=== PATIENT | male | born 1980 | race Caucasian/White ===

== ENCOUNTER 2017-11-06 12:08 | Emergency (ER) | END 2017-11-06 13:06 | disposition home or self-care (01) ==

== ENCOUNTER 2018-06-28 10:41 | Emergency (ER) | payer MEDICARE, OTHER ==
[~2018-06-28] VITALS: Wt 80.8 kg
[~2018-06-28 10:41] MED LIST: MUPI22OI2 TOP
[2018-06-28 10:43] VITALS: BP 116/71; PULSE 77; RESP 17
[2018-06-28] MEDS ORDERED: SULF1TAB31 PO (11:25)
--- NOTE | 2018-06-28 11:27 | ERD ---
ER Documentation Chief Complaint Chief Complaint REDNESS/SWELLING ON NOSE X2 WEEKS HPI 38-year-old male presents with intermittent redness and discharge from his nostril and outer aspect of his nose on the left side for last 2 weeks. No fevers, vomiting, shortness with chest pain. He did started with a lesion on t he inner nostril now has spread to the outer aspect of his nose. ROS All systems reviewed and are negative except as per history of present illness. Medications Home Meds Active Scripts Sulfamethoxazole/Trimethoprim* (Bactrim Ds* Tablet) 1 Each Tablet, 1 TAB PO BID for 7 Days, #14 TAB Prov:KIMBER WATSON MD 06/28/18 Mupirocin* (Bactroban*) 2% -22 Gram Oint...g., 1 APPLIC TOP BID for 7 Days, EA Prov:YUNG BELL PA-C 11/06/17 Allergies Allergies: Coded Allergies: No Known Allergy (Unverified , 06/28/18) PMhx/Soc Medical and Surgical Hx: pt denies Medical Hx, pt denies Surgical Hx Hx Alcohol Use: Yes (SOCIAL) Hx Substance Use: No Hx Tobacco Use: Yes (1 PACK A DAY) Smoking Status: Current some day smoker FmHx Family History: No diabetes, No coronary disease, No other Physical Exam Vitals Vital Signs Date Temp Pulse Resp B/P (MAP) Pulse Ox O2 O2 Flow FiO2 Time Delivery Rate 06/28/18 98.0 77 17 116/71 98 10:43 (86) Physical Exam Const: No acute distress Head: Atraumatic Eyes: Normal Conjunctiva ENT: Normal External Ears, Nose and Mouth. Small pustule on the inner aspect of the left nostril. Small dried pustule on the outer aspect of the left nostril slight surrounding redness without induration, streaking, fluctuance, active discharge. Neck: Full range of motion. No meningismus. Resp: Clear to auscultation bilaterally Cardio: Regular rate and rhythm, no murmurs Abd: Soft, non tender, non distended. Normal bowel sounds Skin: No petechiae or rashes Back: No midline or flank tenderness Ext: No cyanosis, or edema Neur: Awake and alert Psych: Normal Mood and Affect Results 24 hrs Current Medications Medications Dose Sig/Dhruv Start Time Status Last (Trade) Ordered Route PRN Stop Time Admin Dose Reason Admin 1 tab ONCE ONCE 06/28/18 DC 06/28/18 Trimethoprim/ PO 11:30 11:24 06/28/18 11:31 Sulfamethoxaz ole (Bactrim (Ds)) Procedures/MDM Patient presents with left-sided nasal cellulitis and small abscess which is spontaneous and draining and dry. No evidence of necrotizing fasciitis, significant facial cellulitis or abscess to be drained today. Will treat with Bactrim, instructed for warm compresses and recommendations for 2-4-day recheck for evaluation for incision and drainage if no improvement. Otherwise return for worsening redness, fevers, new or worsening symptoms. The patient was stable with no new complaints during the ER course. Clinically, there is no current evidence to suggest meningitis, sepsis, acute abdomen, pneumonia, stroke, acute coronary syndrome, pulmonary embolism, aortic dissection or any other emergent condition appearing to require further evaluation or hospitalization. Patient counseled regarding my diagnostic impression and care plan. Prior to discharge all questions answered. Pt agrees with treatment plan and understands strict return precautions. Pt is instructed to follow up with primary care provider within 24-48 hours. Precautionary instructions provided including instructions to return to the ER if not improving or for any worsening or changing symptoms or concerns. Departure Diagnosis: Primary Impression: Abscess Condition: Stable Patient Instructions: Abscess, Antiobiotic Treatment Only Referrals: NO PRIMARY,CARE PHYSICIAN (PCP) Additional Instructions: Plan warm compresses at home. Recheck for worsening redness, fevers, new worsening symptoms. Recheck in 3-4 days for possible incision and drainage of no improvement. KIMBER WATSON MD Jun 28, 2018 11:27
[2018-06-28] MEDS ORDERED: TRIMETHOPRIM/SULFAMETHOX (DS) TAB PO ONE (11:30)
== END 2018-06-28 12:26 | disposition home or self-care (01) ==
LOC: FTE 10:41
DX: J34.0 Abscess, furuncle and carbuncle of nose (principal); F17.210 Nicotine dependence, cigarettes, uncomplicated
CPT/HCPCS: 99283

== ENCOUNTER 2018-09-05 16:18 | Emergency (ER) | payer MEDICARE, OTHER ==
[~2018-09-05] VITALS: Ht 170.2 cm; Wt 74.9 kg
[~2018-09-05 16:18] MED LIST changes: +SULF1TAB31 PO
[2018-09-05 16:50] VITALS: BP 154/75; PULSE 114; RESP 18; Ht 170.2 cm; Wt 74.9 kg
--- NOTE | 2018-09-05 21:11 | ERD ---
ER Documentation Chief Complaint Chief Complaint ST 01/11 X 1 wk, no other symptoms HPI 38-year-old male, presents to the emergency department, complaining of 5 days with worsening of sore throat, associated with subjective fever, chills, headache and general malaise. He denies upper respiratory symptoms. He denies shortness of breath, no difficulty swallowing. ROS All systems reviewed and are negative except as per history of present illness. Medications Home Meds Active Scripts Sulfamethoxazole/Trimethoprim* (Bactrim Ds* Tablet) 1 Each Tablet, 1 TAB PO BID for 7 Days, #14 TAB Prov:KIMBER WATSON MD 06/28/18 Mupirocin* (Bactroban*) 2% -22 Gram Oint...g., 1 APPLIC TOP BID for 7 Days, EA Prov:YUNG BELL PA-C 11/06/17 Allergies Allergies: Coded Allergies: No Known Allergy (Unverified , 09/05/18) PMhx/Soc Hx Alcohol Use: Yes (SOCIAL) Hx Substance Use: No Hx Tobacco Use: Yes (1 PACK A DAY) FmHx Family History: No diabetes, No coronary disease Physical Exam Vitals Vital Signs Date Temp Pulse Resp B/P (MAP) Pulse Ox O2 O2 Flow FiO2 Time Delivery Rate 09/05/18 96.9 114 18 154/75 100 16:50 (101) Physical Exam Patient is in moderate distress due to pain. EYES: PERRLA, EOMI, injected sclerae EARS: Canals clear, erythematous tympanic membranes THROAT: Erythematous oropharynx with bilateral exudates NECK: Supple, + tender cervical lymphadenopathy. Full ROM without pain or tenderness. HEART: RRR, no rubs, murmurs, clicks or gallops. LUNGS: Clear to auscultation. ABDOMEN: Soft, non-tender without masses or hepatosplenomegaly. EXTREMITIES: No edema bilaterally. BACK: Full ROM, no deformity, normal back exam NEURO: Cranial nerves grossly intact, no motor or sensory deficit Procedures/MDM Differential diagnosis include but not limited to: Tonsillar/pharyngeal infection bacterial/viral/fungal, parotitis, allergies, GERD. Less likely peritonsillar abscess, retropharyngeal abscess. No signs of upper respiratory obstruction Physical examination and clinical presentation consistent most likely with acute suppurative tonsillitis. Centor criteria 4/5. During the ED course the patient remained stable. Clinical impression discussed with the patient who agrees with management. The patient is stable to be treated outpatient and will be discharged home with a Rx for antibiotic and ibuprofen. Some side effects of prescribed medications (headache, rash, nausea, vomiting, diarrhea, drowsiness, habituation, bleeding, hypertension, interactions with other medications) were reviewed. The patient was instructed to follow up with the primary care provider in the next 48h. If symptoms persist, worsen or new symptoms develop, then patient should return to the ED immediately. Disclaimer: Inadvertent spelling and grammatical errors are likely due to EHR/dictation software use and do not reflect on the overall quality of patient care. Also, please note that the electronic time recorded on this note does not necessarily reflect the actual time of the patient encounter. Departure Diagnosis: Primary Impression: Acute suppurative tonsillitis Condition: Stable Additional Instructions: Muchas pollo por [facility] para alexander servicio. Esperamos que en alexander visita a la jhony de emergencia alexander problema medico haya sido solucionado y que se sienta mucho mejor. Para estar seguros que alexander mejoria sigue en proceso, le pedimos el favor de hacer mitzi brittanie de seguimiento medico con alexander doctor primario en los proximos 2-4 panda. Lleve con usted estos documentos y las medicinas recetadas. Si chet sintomas empeoran, NO SE ESPERE, por favor regrese a jhony de emergencia INMEDIATAMENTE. En melinda que usted no tenga un mdico de atencin primaria: Llame al mdico o clnica comunitaria de referencia que aparece abajo jono las horas de consultorio para hacer mitzi brittanie para que le vean. CLINICAS: [facility] [phone] [phone] [facility] [phone] [facility] [phone] [facility] 313 [phone] [address] [facility]. [phone] BELTRAN HUERTA MD Sep 05, 2018 21:11
[2018-09-05] MEDS ORDERED: IBUP-1542 PO (21:29)
[2018-09-05] MEDS ORDERED: AMOX500C2 PO (21:29)
== END 2018-09-05 21:49 | disposition home or self-care (01) ==
LOC: FTE 16:18
DX: J03.90 Acute tonsillitis, unspecified (principal)
CPT/HCPCS: 99283